=== PATIENT | male | born 1970 | race Caucasian/White ===

== ENCOUNTER 2023-12-10 11:23 | Observation (INO) | payer OTHER ==
--- NOTE | 2023-12-10 12:09 | ED Physician Documentation ---
History of Present Illness - Stated complaint Stated Complaint: RT GROIN PX - Chief complaint Chief Complaint: General - Additonal information Additional information: 53-year-old male presents emergency department for right testicular pain. Patient says that he originally thought he had epididymitis and was prescribed ciprofloxacin for his right testicular pain it has not improved in severity and now he feels like his whole right testicle is very hard any gentle touch to the right testicle causes severe excruciating pain. No fevers or chills no systemic symptoms patient says that he is able to void without any difficulty no new sexual partners. PD PAST MEDICAL HISTORY - Past Medical History Past Medical History: No - Past Surgical History Past Surgical History: Yes General: Appendectomy HEENT: Tonsil/Adenoidectomy - Present Medications Home Medications: Ambulatory Orders Medication Instructions Recorded Confirmed Escitalopram [Lexapro] 20 mg PO DAILY 12/10/23 12/10/23 Losartan/Hydrochlorothiazide 1 tab PO DAILY 12/10/23 12/10/23 [Hyzaar 50-12.5 Tablet] Omeprazole 40 mg PO DAILY 12/10/23 12/10/23 Rosuvastatin Calcium 10 mg PO DAILY 12/10/23 12/10/23 Semaglutide [Wegovy] 2.4 mg SUBQ OAW 12/10/23 12/10/23 Tadalafil [Cialis] 5 mg PO DAILY 12/10/23 12/10/23 Topiramate [Trokendi Xr] 25 mg PO DAILY 12/10/23 12/10/23 - Allergies Allergies/Adverse Reactions: Allergies Allergy/AdvReac Type Severity Reaction Status Date / Time No Known Drug Allergies Allergy Verified 12/10/23 11:36 - Social History Does the pt smoke?: No Smoking Status: Never smoker Does the pt drink ETOH?: Yes ETOH Use: Wine - Immunizations Immunizations are current?: Yes PD ED PE NORMAL - Vitals Vital signs reviewed: Yes - General General: Alert and oriented X 3, No acute distress, Well developed/nourished - Cardiac Cardiac: RRR - Respiratory Respiratory: No respiratory distress, Clear bilaterally - Abdomen Abdomen: Normal bowel sounds, Soft, Non tender PD ED PE EXPANDED - Male Male : Circumcised, Tenderness (right testicle), Underground Repairer present, Other (right testicular swelling with Epididymal tenderness and right testicle feels more firm than left). No: Skin lesions, Discharge Results - Vitals Vitals: Vital Signs - 24 hr 12/10/23 12/10/23 12/10/23 11:30 13:36 15:00 Temperature 35.9 C L Heart Rate 53 L 68 76 Respiratory 18 16 18 Rate Blood Pressure 124/78 124/82 H 142/84 H O2 Saturation 98 100 98 Oxygen O2 Source Room air - Labs Labs: Laboratory Tests 12/10/23 12/10/23 12/10/23 12:20 14:58 14:58 WBC 8.0 RBC 5.41 Hgb 15.7 Hct 44.9 MCV 83.0 MCH 29.0 MCHC 35.0 RDW 13.2 Plt Count 225 MPV 11.2 Neut # (Auto) 5.3 Lymph # (Auto) 1.7 [place] # (Auto) 0.7 Eos # (Auto) 0.2 Baso # (Auto) 0.1 Absolute Nucleated RBC 0.00 Nucleated RBC % 0.0 Sodium 137 Potassium 3.1 L Chloride 104 Carbon Dioxide 26 Anion Gap 7.0 BUN 16 Creatinine 0.9 Estimated GFR (MDRD) 88 L Glucose 88 Calcium 9.6 Magnesium 2.0 Total Bilirubin 0.9 AST 17 ALT 21 Alkaline Phosphatase 58 Total Protein 7.5 Albumin 5.1 Globulin 2.4 Albumin/Globulin Ratio 2.1 Lipase 82 Urine Color YELLOW Urine Clarity CLEAR Urine pH 8.0 H Ur Specific [place] 1.020 Urine Protein NEGATIVE Urine Glucose (UA) NEGATIVE Urine Ketones NEGATIVE Urine Occult Blood NEGATIVE Urine Nitrite NEGATIVE Urine Bilirubin NEGATIVE Urine Urobilinogen 0.2 (NORMAL) Ur Leukocyte Esterase NEGATIVE Ur Microscopic Review NOT INDICATED Urine Culture Comments NOT INDICATED - Rads (name of study) Testicular ultrasoundWith Doppler Relevant Findings:: Final report received, EMP independent interpretation of test, Other PD Medical Decision Making - ED course ED course: 53-year-old male presents emergency department for ongoing and worsening right testicular pain. Ultrasound was complete for further evaluation and overall it was fairly inconclusive, it did show possible epididymitis of the right testicle although patient has been on ciprofloxacin for the last week with no improvement in fact worse improvement I then spoke with urology Dr. Falk who says this could be a possible torsed appendix testicle which could be ongoing epididymitis he believes that patient may benefit from hospitalization overnight n.p.o. at midnight and possible exploratory surgery tomorrow for further evaluation of possible testicular torsion versus infection. We went ahead and did some labs and started patient on IV ceftriaxone. I gave report to Dr. Wright hospitalist who has agreed to admit the patient overnight for IV antibiotics and reevaluate tomorrow. Patient is agreeable to stay. Labs are also complete no leukocytosis no anemia mild hypokalemia potassium 3.1 and urinalysis is overall unremarkable except for slightly elevated urine pH. Departure - Departure Disposition: ED Place in Observation Clinical Impression: Right testicular pain Discharge Date/Time: 12/10/23 16:35
[2023-12-10 12:23] LABS: BILIRUBIN,URINE NEGATIVE (NEGATIVE); GLUCOSE, URINE (UA) NEGATIVE (NEGATIVE); KETONES,URINE (UA) NEGATIVE (NEGATIVE); LEUKOCYTE ESTERASE, URINE NEGATIVE (NEGATIVE); NITRITE,URINE NEGATIVE (NEGATIVE); OCCULT BLOOD,URINE NEGATIVE (NEGATIVE); PROTEIN,URINE NEGATIVE (NEGATIVE); UROBILINOGEN,URINE 0.2 (NORMAL) E.U./dL (NORMAL)
[2023-12-10 12:27] LABS: CLARITY,URINE CLEAR (CLEAR)
--- NOTE | 2023-12-10 14:38 | Ultrasound Report ---
PROCEDURE: Testicle w/Doppler INDICATIONS: right testicular pain and swelling TECHNIQUE: Real-time scanning was performed of the scrotum and testicles, with image documentation. Color and p ulse Doppler interrogation was performed of both testicles. COMPARISON: None. FINDINGS: Right: Testicle is normal in size at 3.8 x 2.1 x 3 x 1 cm, and homogenous in echotexture. The testic le demonstrates an abnormal axis. Epididymis is normal overall prominent in size. There is a moderate right-sided. No varicoceles. Overlying scrotal skin is normal in thickness. Left: Testicle is normal in size at 2.9 x 3.2 x 2.8 cm, and homogeneous in echotexture. Epididymis is normal in overall size and morphology. There is a moderate left-sided hydrocele. No varicoceles. Overlying scrotal skin is normal in thickness. Doppler: Increased vascular flow can be seen involving the right epididymis. Color and pulse Doppler demonstrate normal and symmetric arterial flow in both testicles. IMPRESSION: Abnormal right scrotum, with an imaging appearance most consistent with epididymitis. There is preserved normal flow seen within the testicles. Partial torsion is possible, yet considered to be less likely. Bilateral moderate hydroceles are seen. Note: Case discussed by telephone with Rogelio at 2:34 PM on 12/10/2023. Reviewed by: Félix Rahman MD on 12/10/2023 1:37 PM YAKOV Approved by: Félix Rahman MD on 12/10/2023 1:37 PM YAKOV Station ID: [id number]
[2023-12-10] MEDS: cefTRIAXone 1 GM in SODIUM CHLORIDE 0.9% MINIBAG 100 ML IV STA (15:04)
[2023-12-10 15:06] LABS: BASOPHILS # (AUTO) 0.1 10^3/uL (0.0-0.1); BASOPHILS % (AUTO) 0.8 %; EOSINOPHILS # (AUTO) 0.2 10^3/uL (0.0-0.7); EOSINOPHILS % (AUTO) 2.3 %; HCT - HEMATOCRIT 44.9 % (42.0-52.0); HGB - HEMOGLOBIN 15.7 g/dL (14.0-18.0); LYMPHOCYTES # (AUTO) 1.7 10^3/uL (1.5-3.5); LYMPHOCYTES % (AUTO) 21.6 %; MEAN PLATELET VOLUME 11.2 fL (7.4-11.4); MONOCYTES # (AUTO) 0.7 10^3/uL (0.0-1.0); MONOCYTES % (AUTO) 8.5 %; NEUTROPHILS # (AUTO) 5.3 10^3/uL (1.5-6.6); NEUTROPHILS % (AUTO) 66.5 %; PLT - PLATELET COUNT 225 10^3/uL (130-450); RED BLOOD COUNT 5.41 10^6/uL (4.70-6.10); RED CELL DISTRIBUTION WIDTH 13.2 % (12.0-15.0)
[2023-12-10] MEDS ORDERED: SODIUM CHLORIDE FLUSH 0.9% 10 ML SYRINGE IVP PRN (15:18)
[2023-12-10 15:19] LABS: ALBUMIN 5.1 g/dL (3.2-5.5); ALBUMIN/GLOBULIN RATIO 2.1 (1.0-2.2); BILIRUBIN,TOTAL 0.9 mg/dL (0.2-1.0); CALCIUM 9.6 mg/dL (8.5-10.3); CREATININE 0.9 mg/dL (0.6-1.3); POTASSIUM 3.1 mmol/L (3.5-4.5); TOTAL PROTEIN 7.5 g/dL (6.4-8.9)
[2023-12-10] MEDS ORDERED: ONDANSETRON ODT 4 MG TABLET TL PRN (15:45)
[2023-12-10] MEDS ORDERED: ACETAMINOPHEN 325 MG TABLET PO PRN (15:45)
--- NOTE | 2023-12-10 16:20 | HISTORY & PHYSICAL EXAMINATION ---
Chief Complaint - Chief Complaint Chief Complaint: Testicular pain History of Present Illness - Admitted From Admitted From:: Emergency department - History Obtained From Records Reviewed: Emergency department records History obtained from: Patient Exam Limitations: None - History of Present Illness HPI Comment/Other: Patient is a 53-year-old man who has a PMH of HTN, BPH, PTSD who presented to the ED with an approximately 2-week history of right-sided testicular pain. Pain has been progressively worsening over the last couple of weeks, and as unable officer, he sought care from the [facility] where he was started on p.o. Cipro 4 days ago after a presumptive diagnosis of epididymitis was made. As the pain did not improve after starting Cipro, and swelling continued and possibly even worsened he opted to come to the emergency department today for further evaluation. He denies any systemic symptoms including nausea, vomiting, fever, chills, and denies any symptoms other than the pain specifically denying dysuria, discharge,Hematuria, etc. In the emergency department, his vital signs are stable. His lab work was generally reassuring. Testicular ultrasound was read with findings suggestive of epididymitis with bilateral hydrocele, and some concern for possible incomplete torsion though this was felt to be less likely based on the radiology interpretation. There is not a urologist on-call for this hospital over this weekend however Dr. Falk was kind enough to accept phone calls from the emerg ency department and provide his professional recommendation which is that based on the information provided to him over the phone he felt it was most likely not to be a testicular torsion and recommends hospital admission to the hospitalist service for IV antibiotics and a formal urology consultation in the morning when he will be back in town and available. He was given a dose of ceftriaxone as w ell as zofran and patient was accepted to [facility] observation status. History - Past Medical History Cardiovascular: reports: Hypertension, High cholesterol Psych: reports: Post traumatic stress disorder MRSA Hx?: No - Past Surgical History General: reports: Appendectomy HEENT: reports: Tonsil/Adenoidectomy - Family & Social History Living arrangement: At home Living Situation: With spouse/s.o. - Substance History Use: Uses substance without health or social issues: NONE Abuse: Recurrent use of substance despite neg consequences: NONE Dependence: Experiences withdrawal or developed tolerances: NONE Meds/Allgy - Home Medications Home Medications: Ambulatory Orders Medication Instructions Recorded Confirmed Escitalopram [Lexapro] 20 mg PO DAILY 12/10/23 12/10/23 Losartan/Hydrochlorothiazide 1 tab PO DAILY 12/10/23 12/10/23 [Hyzaar 50-12.5 Tablet] Omeprazole 1 cap PO DAILY 12/10/23 12/10/23 Rosuvastatin Calcium 1 tab PO DAILY 12/10/23 12/10/23 Semaglutide [Wegovy] 1 applic SUBQ DAILY 12/10/23 12/10/23 Tadalafil [Cialis] 1 tab PO DAILY 12/10/23 12/10/23 Topiramate [Trokendi Xr] 25 mg PO DAILY 12/10/23 12/10/23 - Allergies Allergies/Adverse Reactions: Allergies Allergy/AdvReac Type Severity Reaction Status Date / Time No Known Drug Allergies Allergy Verified 12/10/23 11:36 Review of Systems - Constitutional Constitutional: denies: Fatigue, Chills, Malaise - Genitourinary Genitourinary: reports: Other (Testicular pain). 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 Exam - Vital Signs Reviewed Vital Signs: Yes Vital Signs: Vital Signs x48h Temp Pulse Resp BP Pulse Ox 12/10/23 15:00 76 18 142/84 H 98 12/10/23 13:36 68 16 124/82 H 100 12/10/23 11:30 35.9 C L 53 L 18 124/78 98 - Physical Exam General Appearance: positive: No acute distress Eyes Bilateral: positive: Normal inspection ENT: positive: ENT inspection nml Neck: positive: Nml inspection Respiratory: positive: Chest non-tender, No respiratory distress, Breath sounds nml Cardiovascular: positive: Regular rate & rhythm, No murmur, No gallop Abdomen: positive: Non-tender, No organomegaly, Nml bowel sounds Comments/Other: exam: Skin color of the penis and scrotum are normal. Right testicular swelling is noted, with generalized tenderness and epididymal edema. There is no urethral discharge. Pain is not improved with scrotal elevation. Conclusion/Plan - Problem List (1) Epididymitis Conclusion/Plan: Patient with findings consistent with epididymitis although per radiology, partial testicular torsion cannot be entirely excluded. On exam and based on his history, I also feel that testicular torsion is less likely. I have discussed this case with Dr. Falk, again who his urologist but not on- call this weekend but was still kind enough to review the case and offered his consultation services for tomorrow morning. I will admit the patient to the [facility] unit under observation status. Start IV doxycycline twice daily. Keep him n.p.o. at midnight in case of unlikely plans for OR in the morning, will follow-up on Dr. Falk's urology consultation in the a.m. Pending clinical course and results of consultation and recommendations, possible discharge home tomorrow on p.o. antibiotics. (2) HTN (hypertension) Conclusion/Plan: BP stable. Resume home meds (3) HLD (hyperlipidemia) Conclusion/Plan: Resume home statin (4) PTSD (post-traumatic stress disorder) Conclusion/Plan: Stable, pleasant and cooperative. Resume home medications. - Lab Results Lab results reviewed: Yes Sherman Bones: 12/10/23 14:58 12/10/23 14:58 - Diagnostic Imaging Results Diagnostic Imaging Results: positive: Final report reviewed Core Measures - Anticipated LOS I expect patient to be DC'd or transferred within 96 hours.: Yes - DVT/VTE - Prophylaxis VTE/DVT Device ordered at admit?: Yes
[2023-12-10] MEDS: SODIUM CHLORIDE FLUSH 0.9% 10 ML SYRINGE IVP SCH (17:28)
[2023-12-10] MEDS: DOXYCYCLINE INJ 100 MG in SODIUM CHLORIDE 0.9% MINIBAG 100 ML IV SCH (17:28)
[2023-12-10] MEDS: PANTOPRAZOLE 40 MG TABLET PO SCH (21:10)
[2023-12-10] MEDS: TADALAFIL 5 MG PO SCH (21:10)
--- NOTE | 2023-12-11 07:42 | CONSULTATION NOTE ---
Referring Provider Name of Referring Provider:: DINH Frederick Consult Date: 12/11/23 Chief Complaint - Chief Complaint Chief Complaint: Right testicular pain, possible torsion History of Present Illness - Admitted From Admitted From:: ER - History Obtained From Records Reviewed: EMR History obtained from: EMR, patient Exam Limitations: none - History of Present Illness HPI Comment/Other: Lencho is a 53-year-old male with no significant past medical history who presented to the ER yesterday with worsening right-sided testicular pain. He states he had pain in the right side for last few weeks and was treated empirically with ciprofloxacin. He was worried when he noted some swelling posterior to the testicle and the pain was not improving and so he presented to the ER. An ultrasound performed which showed preserved blood flow in the testicles, right-sided possible epididymitis, and concern for a possible mild torsion of tissue posterior to the testicle. He states he has had pains like this before and they usually resolve on their own. History - Past Medical History Cardiovascular: reports: Hypertension, High cholesterol Respiratory: reports: Sleep apnea : reports: Benign prostate hypertrophy Psych: reports: Post traumatic stress disorder MRSA Hx?: No Other Past Medical History: CPAP use - Past Surgical History General: reports: Appendectomy HEENT: reports: Tonsil/Adenoidectomy - Family & Social History Living arrangement: At home Living Situation: With spouse/s.o. - Substance History Use: Uses substance without health or social issues: NONE Abuse: Recurrent use of substance despite neg consequences: NONE Dependence: Experiences withdrawal or developed tolerances: NONE Meds/Allgy - Home Medications Home Medications: Ambulatory Orders Medication Instructions Recorded Confirmed Escitalopram [Lexapro] 20 mg PO DAILY 12/10/23 12/10/23 Losartan/Hydrochlorothiazide 1 tab PO DAILY 12/10/23 12/10/23 [Hyzaar 50-12.5 Tablet] Omeprazole 40 mg PO DAILY 12/10/23 12/10/23 Rosuvastatin Calcium 10 mg PO DAILY 12/10/23 12/10/23 Semaglutide [Wegovy] 2.4 mg SUBQ OAW 12/10/23 12/10/23 Tadalafil [Cialis] 5 mg PO DAILY 12/10/23 12/10/23 Topiramate [Trokendi Xr] 25 mg PO DAILY 12/10/23 12/10/23 - Allergies Allergies/Adverse Reactions: Allergies Allergy/AdvReac Type Severity Reaction Status Date / Time No Known Drug Allergies Allergy Verified 12/10/23 11:36 Exam - Vital Signs Vital Signs: Vital Signs x48h Temp Pulse Resp BP Pulse Ox 12/11/23 05:56 36 C L 71 14 117/69 97 Conclusion and Plan - Lab Results Laboratory Results 12/10/23 14:58: Sodium 137, Potassium 3.1 L, Chloride 104, Carbon Dioxide 26, Anion Gap 7.0, BUN 16, Creatinine 0.9, Estimated GFR (MDRD) 88 L, Glucose 88, Calcium 9.6, Magnesium 2.0, Total Bilirubin 0.9, AST 17, ALT 21, Alkaline Phosphatase 58, Total Protein 7.5, Albumin 5.1, Globulin 2.4, Albumin/Globulin Ratio 2.1, Lipase 82 12/10/23 14:58: WBC 8.0, RBC 5.41, Hgb 15.7, Hct 44.9, MCV 83.0, MCH 29.0, MCHC 35.0, RDW 13.2, Plt Count 225, MPV 11.2, Neut # (Auto) 5.3, Lymph # (Auto) 1.7, [place] # (Auto) 0.7, Eos # (Auto) 0.2, Baso # (Auto) 0.1, Absolute Nucleated RBC 0.00, Nucleated RBC % 0.0 12/10/23 12:20: Urine Color YELLOW, Urine Clarity CLEAR, Urine pH 8.0 H, Ur Specific [place] 1.020, Urine Protein NEGATIVE, Urine Glucose (UA) NEGATIVE, Urine Ketones NEGATIVE, Urine Occult Blood NEGATIVE, Urine Nitrite NEGATIVE, Urine Bilirubin NEGATIVE, Urine Urobilinogen 0.2 (NORMAL), Ur Leukocyte Esterase NEGATIVE, Ur Microscopic Review NOT INDICATED, Urine Culture Comments NOT INDICATED
[2023-12-11] MEDS: ESCITALOPRAM 10 MG TABLET PO SCH (08:54)
[2023-12-11] MEDS: POTASSIUM CHLORIDE 20 MEQ TABLET PO ONE (08:54)
[2023-12-11] MEDS: LOSAR PO SCH (08:55)
[2023-12-11] MEDS: hydroCHLOROthiazide 12.5 MG CAPSULE PO SCH (08:55)
[2023-12-11] MEDS: ATORVASTATIN 10 MG TABLET PO SCH (08:55)
--- NOTE | 2023-12-11 10:21 | Discharge Plan ---
Discharge Plan Problem Reviewed?: Yes Disposition: Home, Self Care Condition: Stable Prescriptions: Doxycycline [Vibramycin] 100 mg PO ONCE 10 Days #10 tablet Diet: Regular Activity Restrictions: No Restrictions Shower Restrictions: No Driving Restrictions: No Instruction Topics: Epididymitis Dc No Smoking: If you smoke, Please STOP! Call for help.
[2023-12-11 11:36] VITALS: BP 119/81; O2SAT 99
--- NOTE | 2023-12-11 11:44 | DISCHARGE SUMMARY ---
"Discharge Summary Admit Date: 12/10/23 Discharge Date: 12/11/23 Discharging Provider: Jeff Hough MD Primary Care Provider: [employer] Code Status: Attempt Resuscitation Condition at Discharge: Stable Discharge Disposition: 01 Home, Self Care - DIAGNOSES Admission Diagnoses: Epididymitis HTN HLD PTSD GERD Discharge Diagnoses with Status of Each Condition: Epididymitis - stable HTN - stable HLD - stable PTSD - stable GERD - stable - HPI History of Present Illness: Patient is a 53-year-old man who has a PMH of HTN, BPH, PTSD who presented to the ED with an approximately 2-week history of right-sided testicular pain. Pain has been progressively worsening over the last couple of weeks, and as unable officer, he sought care from the [facility] where he was started on p. o. Cipro 4 days ago after a presumptive diagnosis of epididymitis was made. As the pain did not improve after starting Cipro, and swelling continued and possibly even worsened he opted to come to the emergency department today for further evaluation. He denies any systemic symptoms including nausea, vomiting, fever, chills, and denies any symptoms other than the pain specifically denying dysuria, discharge,Hematuria, etc. In the emergency department, his vital signs are stable. His lab work was generally reassuring. Testicular ultrasound was read with findings suggestive of epididymitis with bilateral hydrocele, and some concern for possible incomplete torsion though this was felt to be less likely based on the radiology interpretation. There is not a urologist on-call for this hospital over this weekend however Dr. Falk was kind enough to accept phone calls from the emergency department and provide his professional recommendation which is that based on the information provided to him over the phone he felt it was most likely not to be a testicular torsion and recommends hospital admission to the hospitalist service for IV antibiotics and a formal urology consultation in the morning when he will be back in town and available. He was given a dose of ceftriaxone as well as zofran and patient was accepted to [facility] observation status. - CONSULTS | PROCEDURES Consultations: Urology - HOSPITAL COURSE Hospital Course: Patient had an uneventful hospital stay. He was admitted to [facility] for further observation and started on IV doxycycline 100 mg twice daily. He continued to have pain however this was relatively well-controlled without the use of opiates during hospitalization. He had no fever, no leukocytosis and his vital signs remained stable throughout the hospitalization. In the morning after admission, our urologist, Dr. Falk, was kind enough to evaluate the patient at bedside and felt that this wasI had related to mild epididymitis or torsion of the testicular appendix. He felt that true testicular torsion was not a concern and that he would be stable to discharge home and continue empiric treatment with doxycycline for 10 days.Patient was happy with this plan and all questions were answered and he was discharged home in a safe manner. Indications for follow-up and return to ER were reviewed. - ALLERGIES Allergies/Adverse Reactions: Allergies Allergy/AdvReac Type Severity Reaction Status Date / Time No Known Drug Allergies Allergy Verified 12/10/23 11:36 - MEDICATIONS Home Medications: Ambulatory Orders Medication Instructions Recorded Confirmed Escitalopram [Lexapro] 20 mg PO DAILY 12/10/23 12/10/23 Losartan/Hydrochlorothiazide 1 tab PO DAILY 12/10/23 12/10/23 [Hyzaar 50-12.5 Tablet] Omeprazole 40 mg PO DAILY 12/10/23 12/10/23 Rosuvastatin Calcium 10 mg PO DAILY 12/10/23 12/10/23 Semaglutide [Wegovy] 2.4 mg SUBQ OAW 12/10/23 12/10/23 Tadalafil [Cialis] 5 mg PO DAILY 12/10/23 12/10/23 Topiramate [Trokendi Xr] 25 mg PO DAILY 12/10/23 12/10/23 Acetaminophen [Tylenol] 650 mg PO Q4HR PRN tab 12/11/23 Doxycycline [Vibramycin] 100 mg PO ONCE 10 Days #10 tablet 12/11/23 - PHYSICAL EXAM AT DISCHARGE General Appearance: positive: No acute distress Respiratory: positive: Chest non-tender, No respiratory distress, Breath sounds nml Cardiovascular: positive: Regular rate & rhythm, No murmur, No gallop Abdomen: positive: Non-tender, No organomegaly, Nml bowel sounds Physical Exam Other/Comments: exam: Skin color of the penis and scrotum are normal. Right testicular swelling is noted, with generalized tenderness and epididymal edema. There is no urethral discharge. Pain is not improved with scrotal elevation. - LABS Result Diagrams: 12/10/23 14:58 12/10/23 14:58 - FOLLOW UP Follow Up: PCP - TIME SPENT Time Spent in Discharge (Minutes): 32"
[2023-12-12] MEDS ORDERED: LOSARTAN 50 MG TABLET PO SCH (09:00)
== END 2023-12-11 11:30 | disposition home or self-care (01) ==
LOC: ED 11:23 → MS2 15:18
PROVIDERS: ADMIT Family Medicine Sports Medicine; ATTEND Family Medicine Sports Medicine
DX: N45.1 Epididymitis (principal); E87.6 Hypokalemia; I10 Essential (primary) hypertension; E78.5 Hyperlipidemia, unspecified; F43.10 Post-traumatic stress disorder, unspecified; K21.9 Gastro-esophageal reflux disease without esophagitis; N40.0 Benign prostatic hyperplasia without lower urinary tract symptoms
CPT/HCPCS: 36415; 76870; 80053; 81003; 83690; 83735; 85025; 93975; 96365; 96366; 96367; 99285; A9270; G0378; 81001; 87086